=== PATIENT | female | born 1970 | race African-American/Black ===

== ENCOUNTER 2017-07-03 13:29 | Emergency (ER) | payer OTHER ==
[~2017-07-03] VITALS: Ht 160 cm; Wt 141.6 kg
[2017-07-03 16:07] LABS: ADD MIUA? YES; BILIRUBIN NEGATIVE; BLOOD LARGE; COLOR YELLOW ((YELLOW)); GLUCOSE (STRIP) NEGATIVE; KETONES 5; LEUKOCYTES MODERATE; NITRITE NEGATIVE; PROTEIN (STRIP) 30; SPECIFIC GRAVITY 1.015 (1.000-1.030); UROBILINOGEN 0.2 MG/DL (0.2-1.0)
[2017-07-03 16:12] LABS: HEMATOCRIT 39.5 % (36.0-46.0); MCH 26.6 PG (29.0-34.0); MCHC 31.4 G/DL (30.0-36.0); MCV 84.6 FL (83-99); MEAN PLAT.VOLUME 9.6 uM^3 (9.5-12.4); PLATELET COUNT 304 K/uL (156-360); RBC DIS.WIDTH-CV 12.7 % (11.8-14.6); RBC DIS.WIDTH-SD 39.2 % (39-53); RED BLOOD COUNT 4.67 M/uL (3.80-5.20)
[2017-07-03 16:20] LABS: CHLORIDE 102 mEq/L (99-109); POTASSIUM 3.6 mEq/L (3.7-5.4); SODIUM 138 mEq/L (136-147)
[2017-07-03 16:21] LABS: GLUCOSE 114 mg/dL (70-99)
[2017-07-03 16:23] LABS: ANION GAP 9 MEQ/L (2-14)
[2017-07-03 16:25] LABS: GFR ESTIMATE (CALCULATED) > 59 mL/min/
[2017-07-03 16:26] LABS: UREA NITROGEN (BUN) 6 mg/dL (9-23)
[2017-07-03 16:35] LABS: QUANTITATIVE HCG < 4.0 MIU/ML
[2017-07-03 16:44] LABS: EPITHELIAL CELLS 1+ /HPF; MUCUS TRACE /LPF; RED BLOOD CELLS TNTC /HPF (0-5); WHITE BLOOD CELLS 40-50 /HPF (0-5)
[2017-07-03 16:45] LABS: BACTERIA 1+ /HPF; CASTS NONE SEEN /LPF; CRYSTALS NONE SEEN
[2017-07-03] MEDS ORDERED: BENTYL10 MG PO (17:21)
[2017-07-03] MEDS ORDERED: BACTRIM,SEPT1 TABLET PO (17:21)
[2017-07-03 17:31] VITALS: BP 139/80
== END 2017-07-03 17:32 | disposition home or self-care (01) ==
LOC: EME 13:29
PROVIDERS: Nurse Practitioner Family
DX: N39.0 Urinary tract infection, site not specified (principal); N92.6 Irregular menstruation, unspecified; I10 Essential (primary) hypertension; Z88.5 Allergy status to narcotic agent; Z88.6 Allergy status to analgesic agent
CPT/HCPCS: 76856; 80048; 81003; 84702; 85027; 99281; 99283

== ENCOUNTER 2017-11-27 12:02 | Emergency (ER) | payer OTHER ==
[~2017-11-27] VITALS: Ht 160 cm; Wt 144.8 kg
[~2017-11-27 12:02] MED LIST: BACTRIM,SEPT1 TABLET PO; BENTYL10 MG PO
[2017-11-27 13:30] LABS: HEMATOCRIT 37.4 % (36.0-46.0); HEMOGLOBIN 11.9 G/DL (11.9-15.5); MCH 26.7 PG (29.0-34.0); MCHC 31.8 G/DL (30.0-36.0); MCV 83.9 FL (83-99); PLATELET COUNT 266 K/uL (156-360); RBC DIS.WIDTH-CV 13.2 % (11.8-14.6); RBC DIS.WIDTH-SD 40.1 % (39-53); RED BLOOD COUNT 4.46 M/uL (3.80-5.20); WHITE BLOOD COUNT 8.4 K/uL (4.1-10.2)
[2017-11-27 13:38] LABS: CHLORIDE 107 mEq/L (99-109); POTASSIUM 4.3 mEq/L (3.7-5.4); SODIUM 142 mEq/L (136-147)
[2017-11-27 13:40] LABS: GLUCOSE 102 mg/dL (70-99)
[2017-11-27 13:44] LABS: CREATININE 0.7 mg/dL (0.6-1.3); GFR ESTIMATE (CALCULATED) > 59 mL/min/
[2017-11-27 13:45] LABS: UREA NITROGEN (BUN) 11 mg/dL (9-23)
[2017-11-27 14:52] LABS: THYROTROPIN (TSH) 0.44 MIU/L (0.4-5.5)
[2017-11-27 16:38] VITALS: BP 112/73
== END 2017-11-27 16:48 | disposition home or self-care (01) ==
LOC: TRA 12:02 → EME 12:02 → TRA 16:48
PROVIDERS: Family Medicine
DX: S80.01XA Contusion of right knee, initial encounter (principal); S80.02XA Contusion of left knee, initial encounter; E04.2 Nontoxic multinodular goiter; M54.2 Cervicalgia; R07.81 Pleurodynia; R10.9 Unspecified abdominal pain; V43.52XA Car driver injured in collision with other type car in traffic accident, initial encounter; Y92.488 Other paved roadways as the place of occurrence of the external cause; I10 Essential (primary) hypertension; Z88.5 Allergy status to narcotic agent; Z88.6 Allergy status to analgesic agent
CPT/HCPCS: 70491; 71111; 72125; 73564; 80048; 84443; 85027; 99281; 99285